=== PATIENT | female | born 1950 | race Caucasian/White ===

== ENCOUNTER → 2018-01-20 20:39 | Outpatient (CLI) | payer OTHER | END | disposition home or self-care (01) | LOC: D.MAMMO 11:45 | DX: Z12.31 Encounter for screening mammogram for malignant neoplasm of breast (principal) ==

== ENCOUNTER → 2018-07-01 08:46 | Outpatient (CLI) | payer OTHER ==
[2018-07-01 11:14] LABS: BASOPHILS 0.4 % (0-2); EOSINOPHILS 3.1 % (0-7); HEMATOCRIT 40.7 % (36.0-48.0); HEMOGLOBIN 13.9 g/dL (12-16); IMMATURE GRANULOCYTES 0.2 % (0-5); LYMPHOCYTES 23.6 % (15-50); MCH 31.7 pg (26.0-34.0); MCHC 34.2 g/dL (31.0-37.0); MCV 92.7 fL (80.0-100.0); MEAN PLATELET VOLUME 10.4 fL (7.4-10.4); MONOCYTES 8.5 % (2-11); NEUTROPHILS 64.2 % (40-80); PLATELET COUNT 178 10x3/uL (130-400); RBC 4.39 10x6/uL (4.00-5.40); RDW 13.1 % (11.5-14.5); WBC 5.2 10x3/uL (4.8-10.8)
== END | disposition home or self-care (01) ==
LOC: D.RT 08:46
PROVIDERS: Internal Medicine Pulmonary Disease
DX: J45.909 Unspecified asthma, uncomplicated (principal)

== ENCOUNTER 2019-12-27 16:38 | Emergency (ER) | payer MEDICARE, OTHER ==
[~2019-12-27] VITALS: Ht 165.1 cm; Wt 91.4 kg
[2019-12-27 16:50] VITALS: Ht 165.1 cm; Wt 91.4 kg
[2019-12-27] MEDS ORDERED: VENTOLIN HFA [SP8 GM INH (16:51)
[2019-12-27] MEDS ORDERED: SINGULAIR10 MG PO (16:52)
[2019-12-27] MEDS ORDERED: ADVAIR 250-501 EAC1 INH (16:52)
[2019-12-27] MEDS ORDERED: [UNRECOGNIZED DRUG - OTHER] PO (16:53)
[2019-12-27] MEDS ORDERED: LIPITOR10 MG PO (16:54)
[2019-12-27] MEDS ORDERED: FLUTICASONE PRO16 GM NASAL (16:54)
[2019-12-27] MEDS ORDERED: ALLER-CHLOR4 MG PO (16:54)
[2019-12-27] MEDS ORDERED: BISOPROLOL-HCT1 EACH PO (16:55)
[2019-12-27] MEDS ORDERED: NORVASC10 MG PO (16:55)
[2019-12-27] MEDS ORDERED: CELEXA20 MG PO (16:56)
[2019-12-27] MEDS ORDERED: VITAMIN E200 UNI1 PO (16:56)
[2019-12-27] MEDS ORDERED: XALATAN 0.0052.5 ML EACH EYE (16:57)
[2019-12-27 17:29] LABS: BASOPHILS 0.4 % (0-2); EOSINOPHILS 2.5 % (0-7); HEMATOCRIT 41.3 % (36.0-48.0); HEMOGLOBIN 13.7 g/dL (12-16); IMMATURE GRANULOCYTES 0.3 % (0-5); LYMPHOCYTES 17.1 % (15-50); MCHC 33.2 g/dL (31.0-37.0); MCV 93.4 fL (80.0-100.0); MEAN PLATELET VOLUME 9.4 fL (7.4-10.4); MONOCYTES 8.4 % (2-11); NEUTROPHILS 71.3 % (40-80); RBC 4.42 10x6/uL (4.00-5.40); RDW 12.8 % (11.5-14.5); WBC 6.9 10x3/uL (4.8-10.8)
[2019-12-27 17:30] LABS: PLATELET COUNT 249 10x3/uL (130-400)
[2019-12-27 17:53] LABS: ANION GAP 13.6 mmol/L (8-16); CALCIUM 9.3 mg/dL (8.5-10.1); CARBON DIOXIDE 26.9 mmol/L (21.0-32.0); CREATININE - SERUM 0.9 mg/dL (0.6-1.3); POTASSIUM - SERUM 3.5 mmol/L (3.5-5.1)
[2019-12-27 17:56] LABS: APTT 27.6 SECONDS (22.8-39.4); INR 1.05 (0.85-1.17); PROTIME 13.7 SECONDS (11.6-15.0)
[2019-12-27 17:57] LABS: ALBUMIN 3.3 g/dL (3.4-5.0); BILIRUBIN - TOTAL 0.51 mg/dL (0.2-1.3); C-REACTIVE PROTEIN 4.5 mg/dL (0.0-0.9); PROTEIN - SERUM 7.3 g/dL (6.4-8.2)
[2019-12-27 18:09] LABS: D-DIMER-QUANTITATIVE 5.78 ug/mLFEU (0.20-0.54)
[2019-12-27] MEDS ORDERED: XARELTO15 MG PO (18:50)
[2019-12-27 19:28] VITALS: BP 138/85
== END 2019-12-27 19:29 | disposition home or self-care (01) ==
LOC: D.ER 16:38
PROVIDERS: Family Medicine
DX: I82.402 Acute embolism and thrombosis of unspecified deep veins of left lower extremity (principal); I10 Essential (primary) hypertension; J45.909 Unspecified asthma, uncomplicated; Z99.81 Dependence on supplemental oxygen

== ENCOUNTER → 2020-04-06 13:02 | Outpatient (CLI) | payer MEDICARE, OTHER ==
[2019-12-27 16:50] VITALS: BMI 33.5
[~2020-04-06 13:02] MED LIST: ADVAIR 250-501 EAC1 INH; ALLER-CHLOR4 MG PO; BISOPROLOL-HCT1 EACH PO; CELEXA20 MG PO; FLUTICASONE PRO16 GM NASAL; LIPITOR10 MG PO; NORVASC10 MG PO; SINGULAIR10 MG PO; VENTOLIN HFA [SP8 GM INH; VITAMIN E200 UNI1 PO; XALATAN 0.0052.5 ML EACH EYE; XARELTO15 MG PO; [UNRECOGNIZED DRUG - OTHER] PO
== END | disposition home or self-care (01) ==
LOC: D.LAB 13:02
PROVIDERS: ATTEND Internal Medicine Pulmonary Disease
DX: Z11.59 Encounter for screening for other viral diseases (principal)

== ENCOUNTER → 2020-04-09 12:45 | Outpatient (CLI) | payer MEDICARE, OTHER ==
[2019-12-27 16:50] VITALS: BMI 33.5
== END | disposition home or self-care (01) ==
LOC: D.RAD 12:45 → D.RT 13:30
PROVIDERS: ATTEND Internal Medicine Pulmonary Disease
DX: J45.909 Unspecified asthma, uncomplicated (principal)